=== PATIENT | female | born 1970 | race Hispanic/Latino ===

== ENCOUNTER 2017-12-05 16:00 | Emergency (ER) | payer BC ==
[2017-12-05] MEDS ORDERED: ONDANSETRON HCL 4 MG/2 ML VIAL ONE (16:40)
[2017-12-05] MEDS ORDERED: MORPHINE SULFATE 2 MG/ML 1ML SYG ONE (16:41)
[2017-12-05] MEDS ORDERED: ASPIRIN 325 MG TABLET ONE (16:41)
[2017-12-05] MEDS ORDERED: NITROGLYCERIN 1GM/1 INCH PACKET TD ONE (16:41)
[2017-12-05 17:06] LABS: BASOPHILS % (AUTO) 0.4 % (0.0-5.0); LYMPHOCYTES % (AUTO) 35.3 % (21.0-51.0); MEAN CORPUSCULAR HEMOGLOBIN 27.6 pg (27.0-33.0); MEAN CORPUSCULAR HGB CONC 33.3 g/dL (32.0-36.0); MEAN CORPUSCULAR VOLUME 82.9 fL (79-99); MONOCYTES % (AUTO) 7.2 % (3.0-13.0); NEUTROPHILS % (AUTO) 54.1 % (40.0-77.0); PLATELET COUNT (AUTO) 340 K/uL (130-400); RED BLOOD CELL COUNT(AUTO) 4.46 MIL/uL (4.00-5.50); RED CELL DISTRIBUTION WIDTH 15.1 % (11.0-15.5); WHITE BLOOD COUNT (AUTO) 10.8 K/uL (4.8-10.8)
[2017-12-05 17:16] LABS: CREATININE 0.8 mg/dL (0.5-1.5); POTASSIUM 3.5 mmol/L (3.5-5.1)
[2017-12-05 17:21] LABS: ALBUMIN 3.6 g/dL (3.5-5.0); BILIRUBIN,TOTAL 0.2 mg/dL (0.2-1.0); TOTAL PROTEIN, SERUM 7.5 g/dL (6.0-8.3)
[2017-12-05 17:59] LABS: APPEARANCE,URINE Clear (CLEAR); BILIRUBIN,URINE Negative (NEGATIVE); COLOR,URINE Yellow (YELLOW); GLUCOSE, URINE (UA) Negative (NEGATIVE); KETONES,URINE Negative (NEGATIVE); LEUKOCYTE ESTERASE ,URINE Small (NEGATIVE); NITRATE,URINE Negative (NEGATIVE); OCCULT BLOOD,URINE Negative (NEGATIVE); PROTEIN,URINE Negative (NEGATIVE); UROBILINOGEN,URINE 0.2 mg/dL (0.2-1.0)
[2017-12-05 18:11] LABS: BACTERIA,URINE Rare /HPF (None Seen); RBC,URINE None Seen /HPF (0-1)
[2017-12-05 18:12] LABS: SQUAMOUS EPITHELIAL CELL,UR 0-2 /HPF (0-2)
== END 2017-12-05 21:00 | disposition home or self-care (01) ==
LOC: EDH 16:00
DX: R07.9 Chest pain, unspecified (principal); R73.9 Hyperglycemia, unspecified; Z90.49 Acquired absence of other specified parts of digestive tract; Z98.890 Other specified postprocedural states; Z79.82 Long term (current) use of aspirin; Z79.899 Other long term (current) drug therapy
CPT/HCPCS: 36415; 71045; 80053; 81001; 82550; 84484 ×2; 85025; 93005 ×2; 96374; 96375; 99285; J2405

== ENCOUNTER 2018-03-05 13:58 | Observation (INO) | payer BC ==
[~2018-03-05] VITALS: Ht 167.6 cm; Wt 96.2 kg
[2018-03-05 14:45] VITALS: BP 156/72
[2018-03-05] MEDS ORDERED: POTASSIUM CHLORIDE 10% ELIXIR 20 MEQ/15 ML UDCUP PO PRN (16:30)
[2018-03-05] MEDS ORDERED: DIPHENHYDRAMINE HCL 25 MG CAPSULE PO PRN (16:30)
[2018-03-05] MEDS ORDERED: CEFTRIAXONE SODIUM 1 GM IVP SCH (16:30)
[2018-03-05] MEDS ORDERED: ACETAMINOPHEN 325 MG TAB PO PRN (16:30)
[2018-03-05] MEDS ORDERED: PROCHLORPERAZINE EDISYLATE 10 MG/2 ML VIAL IV PRN (16:30)
[2018-03-05] MEDS ORDERED: POTASSIUM CHLORIDE 20 MEQ ERTAB PO PRN (16:30)
[2018-03-05] MEDS ORDERED: LIDOCAINE HCL-MPF 1% 2ML VIAL IVP PRN (16:30)
[2018-03-05] MEDS ORDERED: MAG HYDROX/AL HYDROX/SIMETH ES 30 ML SUSP UDCUP PO PRN (16:30)
[2018-03-05] MEDS ORDERED: POTASSIUM CHLORIDE 20MEQ/100ML 100 ML IV PRN (16:30)
[2018-03-05] MEDS ORDERED: DiphenhydrAMINE HCL 50 MG/ML VIAL IV PRN (16:30)
[2018-03-05] MEDS ORDERED: FERR-63 PO (16:33)
[2018-03-05] MEDS ORDERED: CABE0.5T2 PO (16:33)
[2018-03-05] MEDS ORDERED: CALC1TAB2 PO (16:33)
[2018-03-05] MEDS ORDERED: VERA120C2 PO (16:33)
[2018-03-05] MEDS ORDERED: OMEP40CA37 PO (16:33)
[2018-03-05] MEDS ORDERED: ASPI-1181 PO (16:33)
[2018-03-05] MEDS ORDERED: ACETAMINOPHEN 325 MG TAB ONE (16:47)
[2018-03-05] MEDS ORDERED: CABERGOLINE 0.5 MG PO SCH (17:18)
[2018-03-05] MEDS ORDERED: KETOROLAC TROMETHAMINE 30MG/ML IV PRN (17:30)
[2018-03-05] MEDS ORDERED: PHENAZOPYRIDINE HCL 200 MG TABLET PO PRN (17:45)
[2018-03-05 19:00] VITALS: BP 101/56
[2018-03-05] MEDS: PANTOPRAZOLE SODIUM 40 MG TABLET.DR PO SCH (22:02)
[2018-03-06] VITALS: BP 117/49
[2018-03-06] MEDS: SODIUM CHLORIDE 0.9% 1000ML 1,000 ML IV SCH ×3 (00:50→06:27)
[2018-03-06 00:58] LABS: APPEARANCE,URINE Clear (CLEAR); BILIRUBIN,URINE Negative (NEGATIVE); COLOR,URINE Yellow (YELLOW); GLUCOSE, URINE (UA) Negative (NEGATIVE); KETONES,URINE Negative (NEGATIVE); LEUKOCYTE ESTERASE ,URINE Small (NEGATIVE); NITRATE,URINE Negative (NEGATIVE); OCCULT BLOOD,URINE Moderate (NEGATIVE); PH,URINE 6.5 (5.0-8.0); PROTEIN,URINE Trace (NEGATIVE)
[2018-03-06 01:35] LABS: BACTERIA,URINE Few /HPF (None Seen); SQUAMOUS EPITHELIAL CELL,UR Moderate /HPF (0-2)
[2018-03-06 04:00] VITALS: BP 123/61
[2018-03-06 04:58] LABS: MEAN CORPUSCULAR HEMOGLOBIN 28.7 pg (27.0-33.0); MEAN CORPUSCULAR HGB CONC 33.7 g/dL (32.0-36.0); MEAN CORPUSCULAR VOLUME 85.1 fL (79-99); PLATELET COUNT (AUTO) 344 K/uL (130-400); RED BLOOD CELL COUNT(AUTO) 4.11 MIL/uL (4.00-5.50); RED CELL DISTRIBUTION WIDTH 16.9 % (11.0-15.5); WHITE BLOOD COUNT (AUTO) 13.4 K/uL (4.8-10.8)
[2018-03-06 05:05] LABS: CREATININE 0.8 mg/dL (0.5-1.5); POTASSIUM 4.1 mmol/L (3.5-5.1)
[2018-03-06] MEDS: ACETAMINOPHEN 325 MG TAB PO PRN ×2 (06:35→13:21)
[2018-03-06 07:00] VITALS: BP 104/53
[2018-03-06] MEDS ORDERED: CEPH500T PO (08:35)
[2018-03-06] MEDS ORDERED: MELO-106 PO (08:37)
[2018-03-06] MEDS: PANTOPRAZOLE SODIUM 40 MG TABLET.DR PO SCH (08:39)
[2018-03-06] MEDS ORDERED: VERAPAMIL HCL 240 MG SRTAB PO SCH (09:00)
[2018-03-06 11:00] VITALS: BP 99/51
[2018-03-06] MEDS ORDERED: CEFTRIAXONE SODIUM 1 GM IVP SCH (14:00)
== END 2018-03-06 13:30 | disposition home or self-care (01) ==
LOC: 3DH 14:45
PROVIDERS: ADMIT Internal Medicine; ATTEND Internal Medicine
DX: N10 Acute pyelonephritis (principal); D35.2 Benign neoplasm of pituitary gland; E04.2 Nontoxic multinodular goiter; E22.1 Hyperprolactinemia; E66.9 Obesity, unspecified; E78.2 Mixed hyperlipidemia; E88.81 Metabolic syndrome and other insulin resistance; J30.9 Allergic rhinitis, unspecified; D50.8 Other iron deficiency anemias; K21.9 Gastro-esophageal reflux disease without esophagitis; M51.27 Other intervertebral disc displacement, lumbosacral region; M54.30 Sciatica, unspecified side; M71.20 Synovial cyst of popliteal space [Baker], unspecified knee; Z68.34 Body mass index [BMI] 34.0-34.9, adult; Z83.3 Family history of diabetes mellitus; Z79.899 Other long term (current) drug therapy
CPT/HCPCS: 36415 ×2; 80048; 81001; 83605; 85027; 87040 ×2; 87088; 96374; A4510; G0378 ×24; J0696; J7030 ×2